=== PATIENT | male | born 1995 | race Caucasian/White ===

== ENCOUNTER 2016-11-18 17:06 | Inpatient (IN) | payer BC, OTHER ==
[~2016-11-18] VITALS: Ht 190.5 cm; Wt 78.0 kg
--- NOTE | ~2016-11-18 | PA ---
Unit #: [id number] #: [id number] Patient: LENA RUIZ [id number] [facility] [address] [place] [address] [id number] I MR#: [id number] NAME: LENA RUIZ ROOM: P121 Age: 21 Sex: M Admission Date: 11/18/2016 : 1995 Date of Assessment: 11/18/2016 Attending Physician: Darlin Lowe M.D. Admitting Physician: Darlin Lowe M.D. Primary Care Physician: Marlo Angelo M.D. PSYCHIATRIC ASSESSMENT IDENTIFYING DATA Mr. Ruiz is a 21-year-old single white male, who is a resident of [place], [place], and was transferred to us from [facility], where he was taken by his family. CHIEF COMPLAINT "I swallowed a bunch of pills to try to end my life." HISTORY OF PRESENT ILLNESS Mr. Ruiz is a 21-year-old white male, who reports that he has been struggling with depression and that for the past week his mom has been telling him that he is a piece of crap and is worthless and he has tried to do everything and nothing has been good enough and reports he just has given up and he does not care anymore and that he swallowed a bunch of pills to try to end his life. "I'm doing everything I need to do to find a job and nobody wants to help me. I just need a little help, I just want this over with him, they are trying to please everyone else I ain't never going to get it, so I will try, I just wanted a little help from my family. Everybody is so selfish. They keep acting like I'm the problem, I really trying here, I found a job, but it is in [place], I do not have a car and I get it, no one else response, may be if they just give a me a little bruise, so I can take care of myself." He does endorse significant depression, anxiety, irritability, restlessness, feelings of hopelessness and helplessness, and suicidal ideations and as such, recommendation for inpatient level of care for safety and stabilization was made. The patient was stepped up to the inpatient unit. SUBSTANCE ABUSE HISTORY The patient does admit to using cocaine, but denies any other drug abuse. PAST PSYCHIATRIC HISTORY The patient has not had any prior inpatient or outpatient psychiatric treatment. Review of the medical records indicates that he is prescribed Zoloft, but apparently has been noncompliant with medications and as such, has been decompensating. PAST MEDICAL HISTORY The patient's medical history is significant for insulin-dependent diabetes mellitus. ALLERGIES No known medication allergies. Unit #: [id number] #: [id number] Patient: LENA RUIZ PERSONAL AND SOCIAL HISTORY A 21-year-old white male, who reports that he is single, unemployed, and lives at home with his family and has poor social support system. MENTAL STATUS EXAMINATION Young white male, who was casually dressed with fair personal hygiene, appears to be in no acute distress or discomfort. He was awake and alert on interaction with intact orientation to time, place, and person. His mood was anxious and depressed with a congruent affect. His speech was slow and restricted in content. He reports having suicidal ideations, but denies any homicidal ideations, and also denies any auditory or visual hallucinations. His insight and judgment remain significantly impaired. DIAGNOSTIC IMPRESSION Psychiatric: Major depressive disorder, recurrent, moderate, without psychotic features; cocaine abuse, moderate. Medical: None. Stressors: Moderate psychosocial stressors. TREATMENT PLAN 1. The patient has presented with history of mood disorder and has been decompensating and will need inpatient hospitalization for safety and stabilization. We will start him back on his home medications. We will adjust the medications and monitor response. 2. Supportive therapy was provided to the patient. ESTIMATED LENGTH OF STAY 4 to 5 days. ABILITY TO HELP SELF Limited. WILLINGNESS TO HELP SELF The patient appears to be willing to help self. STRENGTHS 1. Communicative. 2. Cooperative. PROBLEMS 1. Chronic dysphoric symptoms. 2. Poor social support system. DISCHARGE CRITERIA This will be contingent upon the patient's ability to show resolution of his depression and anxiety, his ability to stay safe to himself, particularly after discharge from the hospital. Dictated by... Darlin Lowe M.D. JORDY/karol TD: 11/19/2016 07:21 JOB #: [id number] Unit #: [id number] #: [id number] Patient: LENA RUIZ PSYCHIATRIC ASSESSMENT Page 1 of 1 X Darlin Lowe MD PSYCHIATRIC ASSESSMENT
--- NOTE | ~2016-11-18 | PN ---
Unit #: [id number] #: [id number] Patient: LENA NESS [id number] [facility] [address] [place] [address] [id number] MR#: [id number] NAME: LENA NESS ROOM: P121 Age: 21 Sex: M Admission Date: 11/18/2016 : 1995 Attending Physician: Darlin Lowe M.D. Admitting Physician: Darlin Lowe M.D. Primary Care Physician: Davina Murrell PROGRESS NOTES DATE OF SERVICE: 11/22/2016 SUBJECTIVE Mr. Ness is a 21-year-old white male, who was seen today and chart was reviewed and case was discussed with the staff. He has been doing fairly well, though has been anxious, withdrawn, and rather seclusive to himself. He has been taking medications and tolerating them fairly well with no reported side effects. MENTAL STATUS EXAMINATION Young white male who was casually dressed with fair personal hygiene, appears to be in no acute distress or discomfort. He was awake and alert on interaction with intact orientation. His mood was anxious with a congruent affect. He denies any suicidal or homicidal ideations. His insight and judgment remain slightly impaired. TREATMENT PLAN 1. We will continue on his current medications and treatment protocol. We will monitor his response to medications and make further adjustments as needed. 2. We will continue to follow up. Dictated by... Davina Santos/karol TD: 11/25/2016 02:02 [facility]OB #: [id number] [facility] PROGR[facility] NOTES Page 1 of 1 X Darlin Lowe MD X PROGRESS NOTE
--- NOTE | ~2016-11-18 | HP ---
Unit #: [id number] #: [id number] Patient: CRUZ NESS [id number] [facility] [address] [place] [address] [id number] I MR#: [id number] NAME: CRUZ NESS ROOM: P121 Age: 21 Sex: M Admission Date: 11/18/2016 : 1995 Attending Physician: Darlin Lowe M.D. Admitting Physician: Darlin Lowe M.D. Primary Care Physician: Marlo Angelo M.D. HISTORY AND PHYSICAL HISTORY OF PRESENT ILLNESS Cruz is a 21 year old admitted to [address] [place] [address] with depression and after an alleged overdose of "a bunch of pills". PAST MEDICAL HISTORY Diabetes mellitus, type one. PAST SURGICAL HISTORY Nothing reported. ALLERGIES No known drug allergies. SOCIAL HISTORY Dips snuff, drinks on the weekends, denies illicit drug use. FAMILY HISTORY Medically noncontributory. REVIEW OF SYSTEMS CONSTITUTIONAL: No fever or chills. HEENT: Denies any sore throat, ear pain or runny nose. CARDIOVASCULAR: Denies chest pain, irregular heart rhythm or palpitations. CHEST: Denies shortness of breath or cough. No hemoptysis. GASTROINTESTINAL: Denies nausea, vomiting, diarrhea or chronic constipation. ENDOCRINE: Denies history of increased thirst or urination. No recent significant weight loss or gain. GENITOURINARY: Denies dysuria, frequency, or hematuria. SKIN: Denies any rashes. HEMATOLOGIC: Denies history of increased bleeding or bruising. MUSCULOSKELETAL: Denies any hot, swollen joints. No generalized muscle pain. NEUROLOGIC: Denies problems with vision or speech. No frequent, severe headaches. No numbness, tingling or weakness in any extremities. Denies loss of bladder or bowel control. CURRENT MEDICATIONS 1. Zoloft 100 mg q day 2. NovoLog per sliding scale 3. Milk of Magnesia p.r.n. 4. Maalox p.r.n. Unit #: [id number] #: [id number] Patient: CRUZ NESS 5. Tylenol p.r.n. 6. Desyrel 50 mg q h.s. p.r.n. 7. Vistaril p.r.n. 8. Levemir 24 units q.h.s. PHYSICAL EXAMINATION GENERAL: Alert, well-nourished, in no apparent distress. VITAL SIGNS: Blood pressure 100/50, heart rate 80, respirations 16, temperature 98.6. WEIGHT: 172. HEIGHT: 6 foot 3 inches. SKIN: Warm and dry without rash or lesion. HEENT: Normocephalic. TMs not viewed. Oral and nasal passages clear. Conjunctivae clear. Pupils equal, round and reactive to light and accommodation. Extraocular movements intact. NECK: Supple without lymphadenopathy or thyromegaly. HEART: Regular rate and rhythm without murmur. LUNGS: Clear. ABDOMEN: Soft, nontender. : Not done. EXTREMITIES: No evidence of cyanosis, clubbing or edema. Moves all extremities without focal deficit. NEUROLOGICAL: Grossly within normal limits. Cranial Nerves: II: Visual lucas are intact. III, IV AND : Extraocular movements are intact. Pupils are equal, round and reactive to light. V: Facial sensation is grossly normal. VII: Facial movements and expression are normal. VIII: Auditory acuity grossly intact. IX, X: Uvula is midline. Phonation is normal. XI: Patient shrugs shoulders and turns head normally. XII: Tongue protrudes in the midline. Sensory and Motor Function: Sensory and motor sensation is grossly normal. Motor: moves all extremities well. Coordination: Gait is normal. Deep Tendon Reflexes: Intact. IMPRESSION Psychiatric admission. RECOMMENDATIONS PSYCHIATRIC: Per psychiatrist. MEDICAL: I see no contraindications to participating in facility's activities. MEDICAL PROGNOSIS Good. MEDICAL CONDITION Stable. Dictated by... Jenni Ayala P.A.-C. for Davina Francisco/marichuy Unit #: [id number] #: [id number] Patient: CRUZ NESS TD: 11/19/2016 21:43 JOB #: [id number] HISTORY AND PHYSICAL Page 1 of 1 X Jenni Ayala HISTORY AND PHYSICAL
--- NOTE | ~2016-11-18 | PN ---
Unit #: [id number] #: [id number] Patient: LENA NESS [id number] [facility] [address] [place] [address] [id number] MR#: [id number] NAME: LENA NESS ROOM: P121 Age: 21 Sex: M Admission Date: 11/18/2016 : 1995 Attending Physician: Darlin Lowe M.D. Admitting Physician: Darlin Lowe M.D. Primary Care Physician: Davina Murrell PROGRESS NOTES DATE 11/21/2016 DISCUSSION Mr. Ness is a 21-year-old, white male who was seen today and chart was reviewed and case was discussed with the staff. He has been anxious, withdrawn and rather seclusive to himself. He has pleasant and cooperative with the treatment recommendations. He has been taking the medication and tolerating them fairly well with no reported side effects. MENTAL STATUS EXAM Young white male who was casually dressed with fair personal hygiene, appears to be in no acute distress or discomfort. He was awake and alert on interaction with intact orientation. His mood was anxious with congruent affect. He denies any suicidal or homicidal ideation. His insight and judgement remains slightly impaired. TREATMENT PLAN 1. We will continue him on his current medications and treatment protocol. We will monitor his response to the medication and make further adjustments as needed. 2. We will continue to follow up. Dictated by... Davina Santos/marichuy TD: 11/24/2016 03:06 JOB #: [id number] Unit #: [id number] #: [id number] Patient: LENA NESS PROGRESS NOTES Page 1 of 1 X Darlin Lowe MD X PROGRESS NOTE
--- NOTE | ~2016-11-18 | DS ---
Unit #: [id number] #: [id number] Patient: [facility] NESS [id number] [facility] [address] [place] [address] [id number] I MR#: [id number] NAME: LENA NESS ROOM: [facility] Age: 21 Sex: M Admission Date: 11/18/2016 : 1995 Discharge Date: Attending Physician: Darlin Lowe M.D. Primary Care Physician: Marlo Angelo M.D. DISCHARGE SUMMARY IDENTIFYING DATA Mr. Ness is a 21-year-old single white male, who is a resident of [place], [place], and was transferred to us from [facility]. DISCHARGE DIAGNOSES Psychiatric: Major depressive disorder, recurrent, moderate, without psychotic features; cocaine dependence, moderate. Medical: None. Stressors: Mild psychosocial stressors. HISTORY OF PRESENT ILLNESS Please see initial psychiatric evaluation for details. PAST PSYCHIATRIC HISTORY Please see initial psychiatric evaluation for details. PAST MEDICAL HISTORY Please see initial psychiatric evaluation for details. HOSPITAL COURSE The patient was admitted to the adult psychiatric and chemical dependency unit at [facility] and was oriented to the hospital environment. Routine p.r.n. medications were initiated, and he was started back on his home medications and Zoloft as an antidepressant was initiated and he was closely monitored. He was taking medications regularly and was tolerating them fairly well and was able to show a decent and therapeutic response with improvement in depression and anxiety, and as such, it was decided he will be discharged home and will continue treatment on an outpatient basis. DISCHARGE MEDICATIONS Zoloft 100 mg a day for depression. DISCHARGE CONDITION Stable. PROGNOSIS Fair. Dictated by... Davina Santos/modl Unit #: [id number] #: [id number] Patient: LENA NESS TD: 11/23/2016 06:59 JOB #: [id number] DISCHARGE SUMMARY Page 1 of 1 X Darlin Lowe MD X DISCHARGE SUMMARY
--- NOTE | ~2016-11-18 | PN ---
Unit #: [id number] #: [id number] Patient: LENA NESS [id number] [facility] [address] [place] [address] [id number] MR#: [id number] NAME: LENA NESS ROOM: P121 Age: 21 Sex: M Admission Date: 11/18/2016 : 1995 Attending Physician: Darlin Lowe M.D. Admitting Physician: Darlin Lowe M.D. Primary Care Physician: Davina Murrell PROGRESS NOTES DATE November 20, 2016 DISCUSSION Mr. Ness is a 21-year-old white male, with mood disorder, who was seen today and chart was reviewed and the case was discussed with the staff. He has been anxious, withdrawn, depressed, and seclusive to himself. Meanwhile, he has been cooperative with the treatment recommendations and he has been taking the medications and tolerating them fairly well with no reported side effects. MENTAL STATUS EXAMINATION Young white male, who was casually dressed with fair personal hygiene and appears to be in no acute distress or discomfort. He was awake and alert on interaction with intact orientation. His mood is anxious with a congruent affect. He denies any suicidal or homicidal ideations. His insight and judgment remain slightly impaired. TREATMENT PLAN 1. We will continue him on his current medications and treatment protocol, and will monitor his response to the medications, and make further adjustments as needed. 2. We will continue to followup. Dictated by... Davina Santos/citlalli TD: 11/20/2016 13:07 JOB #: [id number] Unit #: [id number] #: [id number] Patient: LENA NESS PROGRESS NOTES Page 1 of 1 X Darlin Lowe MD PROGRESS NOTE
[~2016-11-18 17:06] MED LIST: LANTUS100 U/ML SUBQ; NAPROXEN PO; NO MEDICATIONS; NOVOLOG100 U/M2
== END 2016-11-23 15:01 | disposition home or self-care (01) | DRG 885 ==
LOC: P1S 21:16
DX: F33.1 Major depressive disorder, recurrent, moderate (principal); F14.20 Cocaine dependence, uncomplicated; E10.9 Type 1 diabetes mellitus without complications; Z79.4 Long term (current) use of insulin
CPT/HCPCS: 82947